=== PATIENT | male | born 1965 | race Caucasian/White ===

== ENCOUNTER 2020-11-06 10:02 | Outpatient (CLI) | payer OTHER, SELFPAY ==
--- NOTE | 2020-11-06 10:10 | XR_ITS ---
WS: [id number] Exam: XR cervical spine 3V* [id number] Date/Time of Exam: 11/06/2020 10:12 AM Reason For Exam: BACK NECK PAIN Exam: XR cervical spine 3V* [id number] Date/Time of Exam: 11/06/2020 10:12 AM Reason For Exam: BACK NECK PAIN No fracture or dislocation. The odontoid is intact. Paraspinal soft tissues appear normal. C7 is not optimally seen in the lateral view. Mild facet DJD. Spondylosis at C5 and C6. XR/XR cervical spine 3V* [id number] IMPRESSION: 1. No fracture or malalignment. 2. Mild facet DJD.
--- NOTE | 2020-11-06 10:10 | XR_ITS ---
WS: [id number] Exam: XR lumbar spine 2-3V* [id number] Date/Time of Exam: 11/06/2020 10:12 AM Reason For Exam: BACK NECK PAIN No acute fracture or dislocation. Disc spaces are relatively well maintained. Facet DJD at L4-5 and L 5-S1. Mild spondylosis. XR/XR lumbar spine 2-3V* [id number] IMPRESSION: 1. Mild DJD. No fracture or malalignment.
== END 2020-11-06 10:03 | disposition home or self-care (01) ==
LOC: RAD 10:08
PROVIDERS: PCP Family Medicine; Visit Provider Dermatology
DX: Z02.71 Encounter for disability determination (principal); M54.2 Cervicalgia; M54.5 Low back pain; M47.816 Spondylosis without myelopathy or radiculopathy, lumbar region; M47.812 Spondylosis without myelopathy or radiculopathy, cervical region
CPT/HCPCS: 72040; 72100

== ENCOUNTER 2021-01-13 13:58 | Emergency (ER) | payer OTHER, SELFPAY ==
[2021-01-13 14:09] VITALS: BP 116/82; PULSE 80; RESP 16; TEMP 36.6; O2SAT 98
--- NOTE | 2021-01-13 14:20 | XR_ITS ---
WS: [id number] Exam: XR chest 1V portable [id number] Date/Time of Exam: 01/13/2021 2:38 PM Reason For Exam: SOB No priors. The lungs are clear and fully expanded. Unremarkable cardiomediastinal silhouette. No pleural effusio ns. Bony structures are intact. Surgical clips seen along the superior mediastinum on the right. XR/XR chest 1V portable [id number] IMPRESSION: 1. No acute cardiopulmonary finding.
[2021-01-13 16:06] LABS: Basophils % 0.1 %; Eosinophils % 0.1 %; Hematocrit 45.3 % (42.0-52.0); Hemoglobin 15.3 g/dL (11.7-16.6); Lymphocytes # 1.4 10^3/uL (0.8-4.8); Lymphocytes % 16.9 %; Mean Corpuscular HGB Conc 33.8 g/dL (30.0-36.0); Mean Corpuscular Hemoglobin 29.8 pg (28.0-34.0); Mean Corpuscular Volume 88.1 fl (80-94); Mean Platelet Volume 9.6 fL (7.4-10.4); Monocytes # 0.9 10^3/uL (0.2-0.9); Monocytes % 10.6 %; Neutrophils % 71.9 %; Nucleated Red Blood Cells % 0 %; Platelet Count 297 10^3/cmm (130-400); Red Blood Count 5.14 10^6/uL (4.1-5.3); White Blood Count 8.2 10^3/uL (4.0-10.0)
[2021-01-13 16:28] LABS: Alanine Aminotransferase 25 U/L (0-41); Albumin Level 4.1 g/dL (3.5-5.2); Alkaline Phosphatase 84 IU/L (40-130); Anion Gap 19.2 (5-19); Aspartate Amino Transferase 17 U/L (0-40); Blood Urea Nitrogen 9 mg/dL (6-20); Calcium 8.4 mg/dL (8.5-10.5); Carbon Dioxide 21 mmol/L (22-29); Chloride 103 mmol/L (98-107); Globulin 2.9 g/dL (1.3-4.6); Glomerular Filtration Rate 171.4 mL/min (90-130); Glucose 107 mg/dL (65-115); Osmolality Calculated 287 mOsm/kg (285-295); Potassium 4.2 mmol/L (3.5-5.1); Sodium 139 mmol/L (136-145); Total Bilirubin 0.5 mg/dL (0.15-1.2)
[2021-01-13 17:37] VITALS: BP 119/81; PULSE 85; RESP 18; O2SAT 99
--- NOTE | 2021-01-13 17:39 | ED_ITS ---
HPI - SOB/Dyspnea General: Chief Complaint: Shortness of Breath/Dyspnea Stated Complaint: SOB Time Seen by Provider: 01/13/21 17:39 History of Present Illness: HPI Narrative: 55-year-old male patient comes in today with a 10-day history of nasal congestion and difficulty breathing through his nose. Patient appears unwell but not toxic. Patient also has had some increased difficulty with his depression due to 1 year loss of his father and his son. Patient denies any suicidal or homicidal intent. Patient is tearful at times when discussing these losses. Patient besides mental health history does not have any other chronic medical problems that he reports. Review of medication history notes metoprolol and pregabalin are also on patient's list besides diazepam and citalopram. Review of Systems 2 General: Reports: 10 or more systems reviewed and unremarkable except in HPI and below ENMT: Reports: nasal congestion PFS ED PFSH: Medical History Generalized anxiety disorder Social History (Updated 05/21/20 @ 11:36 by Lucy Cesar LPN) Smoking and tobacco status: former smoker Alcohol intake: current Physical Exam Const: COMMON NORMALS: no acute distress and patient oriented x3 GENERAL APPEARANCE: cooperative HENMT: COMMON NORMALS: normocephalic, TM's normal bilaterally and Normal external nose present HEAD & SCALP: normal to inspection and normocephalic NOSE: Normal external nose present, Abnormal mucous membranes and turbinates present erythematous and Nasal discharge present purulent TYMPANIC MEMBRANE: TM's normal bilaterally MOUTH: Normal oral and palatal mucosa present THROAT: postnasal drainage Eye: GENERAL EYE: appearance normal, both eyes and all related structures Neck/C-Spine: COMMON NORMALS: full ROM Lymph: LYMPHATIC: no lymphadenopathy noted Chest: COMMONS NORMALS: normal inspection of the chest Resp: COMMON NORMALS: normal respiratory effort and clear to auscultation bilaterally EFFORT & INSPECTION: Yes able to speak in complete sentences AUSCULTATION: clear to auscultation bilaterally Cardio: COMMON NORMALS: regular rate and regular rhythm RATE: regular rate RHYTHM: regular rhythm GI: COMMON NORMALS: non-tender : COMMON NORMALS: Yes no CVA tenderness BLADDER/KIDNEY EXAM: Yes no CVA tenderness Back/Pelvis: COMMON NORMALS: no CVA tenderness and thoracic and lumbar spine normal to inspection Extremity: COMMON NORMALS: normal to inspection Neuro: COMMON NORMALS: patient oriented x3 and moves all extremities Psych: COMMON NORMALS: mental status grossly normal and cooperative Skin: COMMON NORMALS: no rashes or lesions noted GENERAL SKIN EXAM: no rashes or lesions noted Course Vital Signs: Vital signs: Vital Signs Temperature 97.8 F 01/13/21 14:09 Pulse Rate 85 01/13/21 17:37 Respiratory Rate 18 01/13/21 17:37 Blood Pressure 119/81 01/13/21 17:37 Pulse Oximetry 99 01/13/21 17:37 MDM - SOB/Dyspnea MDM Narrative: Medical decision making narrative: 55-year-old male patient comes in today with complaints of difficulty breathing through his nose. On exam patient appears mildly unwell but not toxic. Patient is tearful at times which his states that he lost his father and his son about 1 year ago so this time year is hard for him with increased depression. Patient's been ill for about 10 days with sinus pain and pressure. On exam patient has red swollen turbinates with purulent nasal drainage and posterior pharyngeal nasal drainage. Lungs are clear to auscultation. Skin is warm and dry. Differential diagnosis includes but not limited to rhinosinusitis, COVID-19, pneumonia. Chest x-ray was normal. CBC and CMP were unremarkable. Patient had 2 Covid tests at home that were negative. We went ahead and did 1 here in the ER and it continued to be negative. Patient will be treated for rhinosinusitis. Patient was given 10 mg dexamethasone IM and Augmentin. Patient was also given some Afrin spray and some Flonase. Patient will continue treatment and follow-up with primary care for further evaluation and care Lab Data: Labs: Lab Results 3 01/13/21 01/13/21 15:55 15:55 WBC 8.2 10^3/uL 10^3/ uL (4.0-10.0) RBC 5.14 10^6/uL 10^6 /uL (4.1-5.3) Hgb 15.3 g/dL g/dL (11.7-16.6) Hct 45.3 % % (42.0-52.0) MCV 88.1 fl fl (80-94) MCH 29.8 pg pg (28.0-34.0) MCHC 33.8 g/dL g/dL (30.0-36.0) RDW 12.0 % L % (12.1-15.1) Plt Count 297 10^3/cmm 10^3 /cmm (130-400) MPV 9.6 fL fL (7.4-10.4) Neut % (Auto) 71.9 % % Lymph % (Auto) 16.9 % % Charles % (Auto) 10.6 % % Eos % (Auto) 0.1 % % Baso % (Auto) 0.1 % % Neut # (Auto) 5.90 10^3/uL 10^3 /uL (1.8-7.7) Lymph # (Auto) 1.4 10^3/uL 10^3/ uL (0.8-4.8) Charles # (Auto) 0.9 10^3/uL 10^3/ uL (0.2-0.9) Eos # (Auto) 0.0 10^3/uL 10^3/ uL (0.0-0.8) Baso # (Auto) 0.0 10^3/uL 10^3/ uL (0.0-0.1) Nucleated RBC % (a uto) 0 % % Nucleated RBCs # 0.0 /100WBC /100W BC Sodium 139 mmol/L mmol/L (136-145) Potassium 4.2 mmol/L mmol/L (3.5-5.1) Chloride 103 mmol/L mmol/L (98-107) Carbon Dioxide 21 mmol/L L mmol/ L (22-29) Anion Gap 19.2 H (5-19) BUN 9 mg/dL mg/dL (6-20) Creatinine 0.5 mg/dL L mg/dL (0.7-1.2) GFR Calculation 171.4 mL/min H mL /min (90-130) Glucose 107 mg/dL mg/dL (65-115) Calculated Osmolal ity 287 mOsm/kg mOsm/ kg (285-295) Calcium 8.4 mg/dL L mg/dL (8.5-10.5) Total Bilirubin 0.5 mg/dL mg/dL (0.15-1.2) AST 17 U/L U/L (0-40) ALT 25 U/L U/L (0-41) Alkaline Phosphata se 84 IU/L IU/L (40-130) Total Protein 7.0 g/dL g/dL (6.6-8.7) Albumin 4.1 g/dL g/dL (3.5-5.2) Globulin 2.9 g/dL g/dL (1.3-4.6) Discharge Plan Discharge Patient Disposition: Home Clinical Impression: Acute rhinosinusitis Condition: Stable Prescriptions: New Augmentin 875-125 mg tablet 1 tab PO BID Qty: 14 RF: 0 Flonase Allergy Relief 50 mcg/actuation spray,suspension 1 spray intranasal BID 14 Days Qty: 16 RF: 0 Afrin (oxymetazoline) 0.05 % spray,non-aerosol 2 spray intranasal BID 3 Days RF: 0 No Action metoprolol tartrate 100 mg tablet 100 mg PO DAILY 90 Days Qty: 90 RF: 3 pregabalin [Lyrica] 200 mg capsule 200 mg PO BID Qty: 60 RF: 3 citalopram 40 mg tablet 40 mg PO DAILY 90 Days Qty: 90 RF: 3 diazepam 10 mg tablet 10 mg PO TID PRN (Reason: anxiety) 30 Days Qty: 90 RF: 3 Discharge Orders: Discharge ED (Routine); Ordered 01/13/21 Ordered By: Shantanu Chery Referrals: Duane Sanchez MD [Primary Care Provider] - Discharge Diet: Usual diet Discharge Activity: Increase activity as tolerated Patient Instructions: Rhinosinusitis (ED), Opioid Safety Activity Restrictions/Additional Instructions: Home and rest. Drink plenty of water. Take antibiotics twice a day for 7 days. Use Afrin nasal spray 2 sprays each nostril twice daily to help with nasal congestion. Use fluticasone nasal spray 1 spray each nostril twice a day to help with sinus pressure and airway expansion. Wait at least 1 hour between nasal sprays. Follow-up with primary care in 2 days for recheck. Return to the ER for worsening symptoms or new concerns. Coding Level of Care Code ED Field Recruiter for Nena Barraza
[2021-01-13 18:00] VITALS: BP 142/94; PULSE 87; RESP 18; O2SAT 98
[2021-01-13 18:01] LABS: SARS Covid-2 Antigen Negative (Negative)
[2021-01-13] MEDS: amoxicillin-clav 875-125 mg Tablet 1 TAB PO (18:07)
[2021-01-13] MEDS: oxymetazoline 0.05% Nasal Spray 15 mL 2 SPRAY NOSTRIL-B (18:08)
[2021-01-13] MEDS: dexamethasone 10 mg/mL INJ IM (18:10)
--- NOTE | 2021-01-13 19:15 | PC.NURSE ---
Pt discharge home at 1825. not 1914
== END 2021-01-13 19:15 | disposition home or self-care (01) ==
PROVIDERS: Physician Assistant; Emergency Provider Nurse Practitioner Family; PCP Family Medicine
DX: J01.90 Acute sinusitis, unspecified (principal); Z87.891 Personal history of nicotine dependence; Z20.822 Contact with and (suspected) exposure to COVID-19
CPT/HCPCS: 71045; 80053; 85025; 87426; 96372; 99283; J1100

== ENCOUNTER → 2021-05-13 09:19 | Outpatient (BNVA) | payer MEDICAID, SELFPAY | PROVIDERS: PCP Family Medicine; Referring Provider Family Medicine; Visit Provider Orthopaedic Surgery | DX: M47.12 Other spondylosis with myelopathy, cervical region (principal); D18.00 Hemangioma unspecified site | CPT/HCPCS: 72050; 99203; 99204 ==

== ENCOUNTER 2021-05-26 09:58 | Outpatient (CLI) | payer MEDICAID, SELFPAY ==
--- NOTE | 2021-05-26 10:12 | CT_ITS ---
WS: [id number] LDCT LUNG CANCER SCREENING HISTORY: NICOTINE DEPENDENCE, CIGARETTES TECHNIQUE: Axial imaging performed from the apices to 1 cm below the costophrenic angles. Coronal and sagittal reformats are submitted with axial MIP series. All CT scans at [facility] use at least one of these dose optimization techniques: automated exposure control; mA and/or kV adjustment per patient size (includes targeted exams where dose is matched to clinical indication); or iterativ e reconstruction. DLP: 81.18 mGy.cm DIvol: Mean CTDIvol: 1.60 (mGy) COMPARISON: None available. Diagnostic quality: Satisfactory Lung Nodules: Bilateral nodules are noted along the fissures. The largest on the LEFT measures 5 mm. These are typically benign lymph nodes. Lungs: Mild paraseptal emphysema. No mass or additional nodule. No bronchiectasis. No endobronchial l esions. Heart: Normal size heart. No effusion. Other findings: Mild atherosclerosis aorta. Normal size pulmonary artery. No adenopathy. Absent RIGHT thyroid. May been removed surgically. No adrenal mass. Significant artifact through the upper abdomi nal structures by patient's arms. Thoracic spondylitic changes are mild. CT/CT lung screening [id number] IMPRESSION: LUNG-RADS: 2-Benign Appearance or Behavior FOLLOW UP: 12 Month: Continue annual screening with LDCT OTHER FINDINGS (S MODIFIER): None.
--- NOTE | 2021-05-26 10:14 | CT_ITS ---
WS: [id number] CT HEAD NONCONTRAST HISTORY: PERSONAL HX OF FALL/BRADYKINESIA/TREMOR/SPEECH DISORDER TECHNIQUE: Contiguous axial imaging performed through the brain in 2.5 mm imaging. Bone and soft tiss ue windows. Sagittal and coronal reformats reviewed. All CT scans at [facility] use at least one of these dose optimization techniques: automated exposure control; mA and/or kV adjustment per pa tient size (includes targeted exams where dose is matched to clinical indication); or iterative recon struction. DLP: 1042.18 mGy.cm COMPARISON: None available. No acute intracranial hemorrhage, midline shift or mass effect. Mild atrophy and mild chronic microvascular ischemic disease. The extent of atrophy is more than expe cted for a patient of this age. No prior infarct. There is also mild cerebellar atrophy. No inferior displacement of cerebellar tonsils. Ventricles: Normal size with no hydrocephalus. Paranasal sinuses: As visualized are clear. Mastoid air cells: Well pneumatized. Calvarium and scalp: Skull is intact with no soft tissue edema or swelling. CT/CT head wo con* [id number] IMPRESSION: 1. No acute intracranial hemorrhage or edema. 2. Mild cerebellar and cerebral atrophy. More than expected for the patient's age. No prior infarct.
== END 2021-05-26 09:59 | disposition home or self-care (01) ==
LOC: RAD 10:00
PROVIDERS: PCP Family Medicine; Visit Provider Family Medicine
DX: R47.9 Unspecified speech disturbances (principal); R25.8 Other abnormal involuntary movements; R25.1 Tremor, unspecified; F17.210 Nicotine dependence, cigarettes, uncomplicated; G31.9 Degenerative disease of nervous system, unspecified; Z13.83 Encounter for screening for respiratory disorder NEC; Z91.81 History of falling
CPT/HCPCS: 70450; 71271

== ENCOUNTER 2021-06-12 08:20 | Outpatient (CLI) | payer MEDICAID, SELFPAY ==
--- NOTE | 2021-06-12 08:45 | MR_ITS ---
WS: [id number] MRI CERVICAL SPINE NONCONTRAST TECHNIQUE: Sagittal T1, T2 and STIR imaging. Axial T2, gradient, and fiesta imaging. CLINICAL INFORMATION: pain/poor balance COMPARISON: MRI 1 [id number] FINDINGS: Straightening of the normal cervical lordosis. Mild cervical curve. Hemangiomas C3 and C7 vertebral b odies. Mild compression of the superior endplate at C7 appears new compared to 2019. Small amount of edema in this location. Correlation for recent trauma. C2-C3: Normal. C3-C4: Mild disc bulging with osteophytic ridging. Mild LEFT and no significant RIGHT foraminal narro wing. Mild facet arthropathy. Spinal canal is patent. C4-C5: Mild disc osteophyte complex with endplate ridging. Mild central canal stenosis. Slight contac t of the cervical cord. Mild RIGHT greater than LEFT foraminal narrowing. C5-C6: Disc osteophyte complex endplate ridging eccentric to the LEFT with slight indentation LEFT ve ntral cervical cord slightly progressed. Mild central canal stenosis. Severe LEFT and moderate RIGHT bony foraminal narrowing. Mild facet arthropathy. C6-C7: Disc osteophyte complex with endplate ridging. Mild central canal stenosis. Moderate LEFT and mild to moderate RIGHT bony foraminal narrowing. C7-T1: Minimal disc bulging. Spinal canal and foramen are patent. Visualized brain stem structures: Normal. Prevertebral soft tissues: Normal. MR/MR cervical spin wo con* [id number] IMPRESSION: 1. Straightening of the normal cervical lordosis with mild cervical curve. 2. Hemangiomas C3 and C7 vertebral bodies. Slight compression of the anterior superior endplate C7 appears new from previous. Trace edema in this location. 3. Mild central canal stenosis C4-C5 C5-C6 and C6-C7. Slight indentation on th e cervical cord at C5-C6 due to disc osteophyte complex slightly progressed com pared to previous. 4. Severe LEFT C5-C6 bony foraminal narrowing appears stable. Moderate LEFT C6 -C7 bony foraminal narrowing appears stable.
== END 2021-06-12 08:21 | disposition home or self-care (01) ==
LOC: RAD 08:22
PROVIDERS: PCP Family Medicine; Visit Provider Orthopaedic Surgery
DX: M54.2 Cervicalgia (principal)
CPT/HCPCS: 72141

== ENCOUNTER → 2021-07-03 08:28 | Outpatient (BNVA) | payer MEDICAID, SELFPAY | PROVIDERS: PCP Family Medicine; Visit Provider Orthopaedic Surgery | DX: M47.12 Other spondylosis with myelopathy, cervical region (principal) | CPT/HCPCS: 99214 ==

== ENCOUNTER 2021-07-30 05:44 | Day surgery (SDC) | payer MEDICAID, SELFPAY ==
[2021-07-28 08:50] VITALS: BMI 32.1
[2021-07-28 09:31] LABS: Basophils # 0.1 10^3/uL (0.0-0.1); Basophils % 0.7 %; Eosinophils # 0.1 10^3/uL (0.0-0.8); Eosinophils % 0.6 %; Hematocrit 44.4 % (42.0-52.0); Hemoglobin 14.9 g/dL (11.7-16.6); Lymphocytes % 37.8 %; Mean Corpuscular HGB Conc 33.6 g/dL (30.0-36.0); Mean Corpuscular Hemoglobin 29.9 pg (28.0-34.0); Mean Corpuscular Volume 89.2 fl (80-94); Mean Platelet Volume 9.4 fL (7.4-10.4); Monocytes # 1.2 10^3/uL (0.2-0.9); Monocytes % 11.4 %; Neutrophils # 5.22 10^3/uL (1.8-7.7); Neutrophils % 49.2 %; Nucleated Red Blood Cells % 0 %; Platelet Count 336 10^3/cmm (130-400); Red Blood Count 4.98 10^6/uL (4.1-5.3); Red Cell Distribution Width 12.2 % (12.1-15.1); White Blood Count 10.6 10^3/uL (4.0-10.0)
--- NOTE | 2021-07-28 09:37 | ECG_ITS ---
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 Measurements Intervals [place] Rate: 61 P: 57 MT: 169 QRS: 71 QRSD: 93 T: 74 QT: 410 QTc: 414 Interpretive Statements SINUS RHYTHM EARLY REPOLARIZATION [ST ELEVATION WITH NORMALLY INFLECTED T-WAVE] MINIMAL ST DEPRESSION [0.025+ mV ST DEPRESSION] No previous ECG available for comparison Electronically Signed On 07-28-2021 21:30:35 CDT by Beulah Rich M.D. [id number]
[2021-07-28 09:49] LABS: Anion Gap 14.8 (5-19); Blood Urea Nitrogen 18 mg/dL (6-20); Calcium 8.9 mg/dL (8.5-10.5); Carbon Dioxide 24 mmol/L (22-29); Chloride 102 mmol/L (98-107); Glomerular Filtration Rate 116.2 mL/min (90-130); Glucose 106 mg/dL (65-115); Osmolality Calculated 286 mOsm/kg (285-295); Potassium 3.8 mmol/L (3.5-5.1); Sodium 137 mmol/L (136-145)
--- NOTE | 2021-07-28 20:11 | P.ANESASSM_ITS ---
Pre-Anesthetic Assessment Height/Weight: Height 1.8 m Weight 104.326 kg Preop Diagnosis: cervical spondylosis w/ myelopathy Operation Date: 07/30/21 07:00 Proposed Procedures p Anterior Cervical Discectomy & Fusion C5/6 6/7 [id number]/ M47.12(Not Applicable) - Willem Grossman, DO Familial anesthetic complications: none Was Beta Shoshana taken within 24 hours: Yes Was Clonidine taken within 24 hours: N/A Social No alcohol and No tobacco Exam alert, oriented x 3, clear to auscultation bilaterally and regular rate & rhythm Airway Submandibular: within normal limits Cervical ROM: Other (Very limited ROM in extension and flexion ) Mallampati: Class III Dentition: partials (1 tooth is removable ) Pulmonary None reported CV/HEM Hypertension METS < 4 Denies CAD, [place] hx None reported Hepatic None reported GI None reported Metabolic Thyroid Disease Musc/skel Lower Back Pain and Osteoarthritis/DJD Neuropsych Anxiety Parkinson's disease suspected by PCP on carbidopa-levodopa Anesthetic Plan ASA status: 3 Anesthesia: Anesthesia Evaluation and General Other: We discussed risk and benefits of general anesthesia including PONV, sore throat (sometimes severe), corneal abrasion, positioning and peripheral nerve injuries, life threatening allergic reaction, post operative ICU admission requiring prolonged intubation, aspiration, stroke, heart attack, , and rare incidences of recall. Patient consents to proceed with general anesthesia. Discussed 2 PIV, possible arterial line. Risk of > 500 ml blood loss (7ml/kg in children): Yes, adequate IV access and fluids planned Medications/Allergies Home Medications Medication Instructions Recorded Confirmed Last Taken Type citalopram 40 mg tablet 40 mg PO DAILY 90 Days #90 tab 12/30/20 07/28/21 Unknown Rx oxycodone-acetaminophen 10 mg-325 1 tab PO TID PRN 90 Days #90 tab 04/01/21 07/28/21 Unknown Rx mg tablet pregabalin 200 mg capsule (Lyrica) 200 mg PO BID #60 cap 04/01/21 07/28/21 Unknown Rx diazepam 10 mg tablet 10 mg PO TID PRN 30 Days #90 tab 04/21/21 07/28/21 Unknown Rx atorvastatin 10 mg tablet 10 mg PO DAILY 07/28/21 07/28/21 Unknown History carbidopa 25 mg-levodopa 100 mg 1 tab PO TID 07/28/21 07/28/21 Unknown History tablet metoprolol tartrate 100 mg tablet 100 mg PO DAILY 07/28/21 07/28/21 Unknown History naloxone 4 mg/actuation nasal 1 spray INTRANASAL PRN PRN 07/28/21 07/28/21 Unknown History spray (Narcan) Allergies Allergy/AdvReac Type Severity Reaction Status Date / Time No Known Allergies Allergy Verified 07/28/21 08:37 [facility] Anesthesia Medical History Generalized anxiety disorder Social History Smoking and tobacco status: current every day smoker (1/4 pack per day ) Alcohol intake: current Data Anesthesia : 07/28/21 08:59 07/28/21 08:59 Short CBC 07/28/21 Range/Units 08:59 WBC 10.6 H (4.0-10.0) 10^3/uL Hgb 14.9 (11.7-16.6) g/dL Hct 44.4 (42.0-52.0) % MCV 89.2 (80-94) fl Plt Count 336 (130-400) 10^3/cmm Neut % (Auto) 49.2 % Neut # (Auto) 5.22 (1.8-7.7) 10^3/uL BMP 07/28/21 08:59 Sodium 137 Potassium 3.8 Chloride 102 Carbon Dioxide 24 BUN 18 Creatinine 0.7 Glucose 106 Calcium 8.9 Cardiac Studies: No Data to Display
[2021-07-30] VITALS (17 sets, daily range): BP systolic 125–165; BP diastolic 74–106; PULSE 61–86; RESP 12–18; TEMP 36.6–36.7; O2SAT 96–100
--- NOTE | 2021-07-30 | SCC_ITS ---
Procedure done: 1. Anterior diskectomy C5/6 2. Anterior discectomy C6/7 3. Insertion of cage C5/6 4. Insertion of Cage C6/7 5. Instrumentation with anterior plate from C5-C7 6. Use of allograft 20.6 seconds of fluoroscopic guidance, for a cumulative dose of 2.46 mGy, was provided to Dr. Grossman by the radiology department. C-arm images of the cervical spine were saved for the patient's permanent record. EUGENIOD
--- NOTE | 2021-07-30 | XR_ITS ---
WS: [id number] INTRAOPERATIVE TECHNIQUE: 4 Spot fluoroscopic images for intraoperative purposes. FLUOROSCOPY TIME: 12.4 seconds CLINICAL INFORMATION: acdf c5/6 c6/7 COMPARISON: None. FINDINGS: ACDF C5-C7 with interbody fusion grafts. Endotracheal tube with tip above the disha. XR/XR cervical spine 3V* [id number] IMPRESSION: Images obtained for intraoperative purposes.
[2021-07-30] MEDS: sodium chloride 0.9% 1,000 ML 30 ML IV (06:21)
[2021-07-30] MEDS: midazolam 1 mg/mL INJ 2 mL 2 MG IVP (06:32)
--- NOTE | 2021-07-30 06:49 | W.PM.OPSUD ---
Surgery/Procedure H&P Update DATE OF PROCEDURE: July 30, 2021 DATE H&P PERFORMED: 07/03/21 H&P UPDATE INFORMATION: I have reviewed H&P completed within last 30 days, I have examined patient prior to procedure and No changes to prior documentation PREOP DIAGNOSIS: Cervical spondylosis with myelopathy PLANNED PROCEDURE: Operation Date: 07/30/21 07:00 Proposed Procedures p Anterior Cervical Discectomy & Fusion C5/6 6/7 [id number]/ M47.12(Not Applicable) - Willem Grossman DO
--- NOTE | 2021-07-30 06:50 | P.ANESUD_ITS ---
Pre-Anesthetic Update Pre-Anesthetic Assessment: Date of Surgery/Procedure: 07/30/21 Preop Alexandrea gnosis: Cervical spondylosis with myelopathy Proposed Procedure: Operation Date: 07/30/21 07:00 Proposed Procedures p Anterior Cervical Discectomy & Fusion C5/6 6/7 [id number]/ M47.12(Not Applicable) - Willem Grossman, DO Any changes to Pre-Anesthetic Assessment?: No Last Intake: Intake Last Liquid Date 07/29/21 Last Liquid Time 18:00 Last Solid Date 07/29/21 Last Solid Time 18:00 Labs Last 48hrs: Short CBC 07/28/21 Range/Units 08:59 WBC 10.6 H (4.0-10.0) 10^3/ uL Hgb 14.9 (11.7-16.6) g/dL Hct 44.4 (42.0-52.0) % MCV 89.2 (80-94) fl Plt Count 336 (130-400) 10^3/c mm Neut % (Auto) 49.2 % Neut # (Auto) 5.22 (1.8-7.7) 10^3/u L BMP 07/28/21 08:59 Sodium 137 Potassium 3.8 Chloride 102 Carbon Dioxide 24 BUN 18 Creatinine 0.7 Glucose 106 Calcium 8.9 Vitals: Temperature 97.8 F 07/30/21 06:05 Temperature Source Temporal Artery S can 07/30/21 06:05 Pulse Rate 68 07/30/21 06:05 Pulse Rhythm 07/30/21 06:05 Pulse Strength 3+ Normal 07/30/21 06:05 Respiratory Rate 18 07/30/21 06:05 Blood Pressure 128/87 07/30/21 06:05 Blood Pressure Karla n 100 07/30/21 06:05 Pulse Oximetry 96 07/30/21 06:05 Oxygen Delivery Me thod 07/30/21 06:05 Exam: Pre-Anes Outpt Exam: alert, oriented x 3, clear to auscultation bilaterally and regular rate & rhythm Cardiac Studies: No Data to Display
--- NOTE | 2021-07-30 09:20 | PM.PACU ---
PACU note Narrative: Patient in PACU, alert, responsive. Known bradykinensia, secretions suctioned. Sat up in bed. Patient asking what time it is. Surgical dressing dry and intact.
--- NOTE | 2021-07-30 09:25 | PM.OP ---
Operative Report Date of procedure: July 30, 2021 Pre-op diagnosis: Preop Diagnosis Cervical spondylosis with myelopathy Post-op diagnosis: same Procedure done: 1. Anterior diskectomy C5/6 2. Anterior discectomy C6/7 3. Insertion of cage C5/6 4. Insertion of Cage C6/7 5. Instrumentation with anterior plate from C5-C7 6. Use of allograft Surgeon: Willem Grossman Cooking Appliance Repair Technician: Mook Trinh Cooking Appliance Repair Technician: The surgical pathologist, Mook Trinh, YANCI was needed for his expertise under the microscope. He was important and necessary throughout the procedure to complete in a safe and timely manner. He assisted with patient positioning prepping and draping tissue retraction suctioning of the operative field protection of the dural sac and tissue closure Estimated blood loss (mL): 25 Procedure: 1. Anterior diskectomy C5/6 2. Anterior discectomy C6/7 3. Insertion of cage C5/6 4. Insertion of Cage C6/7 5. Instrumentation with anterior plate from C5-C7 6. Use of allograft The patient was taken to the operating room, where he underwent general endotracheal anesthesia without complications. He was then positioned supine on the operating table, and all areas of impingement were well padded. The arms were carefully padded and tucked at his sides. A roll was placed between the shoulder blades.. An x-ray was done to determine the appropriate level for the skin incision. The entire neck was then sterilely prepped and draped in the usual fashion. Neuromonitoring was attached prior to prepping. A transverse skin incision was made and carried down to the platysma muscle. This was then split in line with its fibers. Blunt dissection was carried down medial to the carotid sheath and lateral to the trachea and esophagus until the anterior cervical spine was visualized. A needle was placed into a disc and an x-ray was done to determine its location. The longus colli muscles were then elevated bilaterally with the electrocautery unit. Self-retaining retractors were placed deep to the longus colli muscle. Attention was brought to the C5/6 level that was confirmed on x-ray. A caspar pin was placed into the C5 vertebrae and the C6 vertebrae. The disk space was then distracted. The microscope was then brought in. A radical anterior discectomies were performed at C5/6. This included complete removal of the anterior annulus, nucleus, and posterior annulus. The posterior longitudinal ligament was removed as were the posterior osteophytes. Foraminotomies were then accomplished bilaterally. This was done using a high speed loc, kerrison rongeurs and curretes Once all of this was accomplished, the curved currette was used to check for any residual compression. The central canal was wide open as were the foramen. A high-speed bur was used to remove the cartilaginous endplates above and below the interspace. Bleeding cancellous bone was exposed. The disc space were measured and appropriate size cage were placed sterilely onto the field. Allograft graft was packed into the cages. The cage was then placed and there was good juxtaposition against the bleeding decorticated surfaces and good distraction of each interspace. Attention was brought to the next interspace. The [place] pins were removed. Bone wax was used to prevent any bleeding from occurring at the pin sites. Attention was brought to the C6/7 level that was confirmed on x-ray. A caspar pin was placed into the C6 vertebrae and the C7 vertebrae. The disk space was then distracted. The microscope was then brought in. A radical anterior discectomies were performed at C6/7. This included complete removal of the anterior annulus, nucleus, and posterior annulus. The posterior longitudinal ligament was removed as were the posterior osteophytes. Foraminotomies were then accomplished bilaterally. This was done using a high speed loc, kerrison rongeurs and curretes Once all of this was accomplished, the curved currette was used to check for any residual compression. The central canal was wide open as were the foramen. A high-speed bur was used to remove the cartilaginous endplates above and below the interspace. Bleeding cancellous bone was exposed. The disc space were measured and appropriate size cage were placed sterilely onto the field. Allograft graft was packed into the cages. The cage was then placed and there was good juxtaposition against the bleeding decorticated surfaces and good distraction of each interspace. Attention was brought to the next interspace. The [place] pins were removed. Bone wax was used to prevent any bleeding from occurring at the pin sites The appropriate size anterior cervical locking plate was chosen and bent into gentle lordosis. Two screws were then placed into each of the vertebral bodies at C5, C6, C7 There was excellent purchase. A final x-ray was done confirming good position of the hardware and Cages. The locking screws were then applied, also with excellent purchase. Following a final copious irrigation, there was good hemostasis and no dural leaks. The carotid pulse was strong. The wounds were then closed in layers using 2-0 Vicryl suture for the platysma muscle, 2-0 Vicryl suture for the subcutaneous tissue, and 4-0 monocryl suture in a subcuticular skin closure. Glue was placed followed by application of a sterile dressing. The drain was hooked to bulb suction. A soft collar was applied. The patient was then carefully returned to the supine position on his hospital bed where he was reversed and extubated and taken to the recovery room having tolerated the procedure well.
[2021-07-30] MEDS: fentaNYL 50 mcg/mL INJ 2mL IVP (09:38)
[2021-07-30] MEDS: oxyCODONE-APAP 10-325 mg Tablet 1 TAB PO (10:37)
--- NOTE | 2021-07-30 11:12 | SUR.PHASEII ---
patient discharged to home with present. patient awake, alert. patient was able to void at bedside with urinal. pt had room air sat at 96 consistently. patient stated his pain was comfortable for him. he had united keetoowah j collar in place. dressing to anterior neck dry and intact, no drainage noted. patient drank water and swallowed pain pill while in post op. patient transferred to wheelchair, able to stand.
--- NOTE | 2021-07-30 12:17 | ANE.PACU2 ---
Inpatient post-anesthesia follow up: Airway intact: Yes Vital signs: Temperature 98.0 F Pulse Rate 70 Respiratory Rate 16 Blood Pressure 141/106 Pulse Oximetry 96 Oxygen Delivery Me thod Room Air Oxygen Flow Rate 1 Fraction of Inspir ed Oxygen Hydration adequate: Yes Nausea and vomiting: No Pain level: 6 Mental status: Baseline
== END 2021-07-30 11:09 | disposition home or self-care (01) ==
PROVIDERS: Anesthesiology; PCP Family Medicine; Visit Provider Orthopaedic Surgery
PROC: 0RB30ZZ Excision of Cervical Vertebral Disc, Open Approach (ICD-10-PCS; CPT 22551; principal; 2021-07-30 07:00)
DX: M47.12 Other spondylosis with myelopathy, cervical region (principal); I10 Essential (primary) hypertension; G20 Parkinson's disease; F17.210 Nicotine dependence, cigarettes, uncomplicated; F41.1 Generalized anxiety disorder
CPT/HCPCS: 20931; 22551; 22552; 22845; 22853 ×2; 51702; 72040; 76000; 80048; 85025; 93005; 97760; C1713; C9359; J0330; J0690; J1100; J1170; J2250; J2370; J2405; J2704; J2710; J3010; J3490; J7030; L0174

== ENCOUNTER → 2021-08-12 08:59 | Outpatient (BNVA) | payer MEDICAID, SELFPAY | PROVIDERS: PCP Family Medicine; Visit Provider Physician Assistant | DX: Z47.89 Encounter for other orthopedic aftercare (principal); Z98.890 Other specified postprocedural states; Z98.1 Arthrodesis status | CPT/HCPCS: 72040; 99024 ==

== ENCOUNTER → 2021-09-02 14:15 | Outpatient (BNVA) | payer MEDICAID, SELFPAY | PROVIDERS: PCP Family Medicine; Referring Provider Family Medicine; Visit Provider Specialist | DX: G23.8 Other specified degenerative diseases of basal ganglia (principal); F48.2 Pseudobulbar affect; F41.1 Generalized anxiety disorder; R26.81 Unsteadiness on feet | CPT/HCPCS: 99205 ==

== ENCOUNTER → 2021-09-09 09:08 | Outpatient (BNVA) | payer MEDICAID, SELFPAY | PROVIDERS: PCP Family Medicine; Visit Provider Physician Assistant | DX: Z98.1 Arthrodesis status (principal); Z47.89 Encounter for other orthopedic aftercare | CPT/HCPCS: 72040; 99024; 99212 ==

== ENCOUNTER 2021-09-30 09:59 | Outpatient (CLI) | payer MEDICAID, SELFPAY ==
--- NOTE | 2021-09-30 10:15 | MR_ITS ---
WS: [id number] MRI BRAIN WITHOUT CONTRAST HISTORY: G20 - Parkinson's disease COMPARISON: None available. TECHNIQUE: Diffusion imaging, multiplanar T1, T2 and FLAIR imaging obtained. No evidence for acute infarct or hemorrhage. Koehler-white matter differentiation is normal. Mild atrophy. No prior infarct. Appropriate width of the pars compacta. The substantia nigra is not a s well seen as on a high resolution evaluation but does appear within appropriate width. Ventricles and extra-axial spaces are normal. No inferior displacement of cerebellar tonsils. The sella turcica and pituitary gland are unremarkabl e. Dural venous sinuses and tuscarora of [place] demonstrate no abnormality on this unenhanced studies. Paranasal sinuses: Clear. Mastoid air cells: Normal. Calvarium and scalp: Intact. MR/MR head wo con* [id number] IMPRESSION: 1. No acute infarct or hemorrhage. 2. Very mild atrophy. No significant small vessel ischemic disease or prior in farct. 3. Normal appearance of the substantia nigra.
== END 2021-09-30 10:00 | disposition home or self-care (01) ==
PROVIDERS: PCP Family Medicine; Visit Provider Specialist
DX: G20 Parkinson's disease (principal); G31.9 Degenerative disease of nervous system, unspecified
CPT/HCPCS: 70551

== ENCOUNTER → 2021-10-07 09:51 | Outpatient (BNVA) | payer MEDICAID, SELFPAY | PROVIDERS: PCP Family Medicine; Visit Provider Specialist | DX: G23.8 Other specified degenerative diseases of basal ganglia (principal); F48.2 Pseudobulbar affect; F41.1 Generalized anxiety disorder; R26.81 Unsteadiness on feet | CPT/HCPCS: 99215 ==

== ENCOUNTER → 2021-10-14 09:01 | Outpatient (BNVA) | payer MEDICAID, SELFPAY | PROVIDERS: PCP Family Medicine; Visit Provider Physician Assistant | DX: R41.82 Altered mental status, unspecified; Z47.89 Encounter for other orthopedic aftercare; Z98.1 Arthrodesis status | CPT/HCPCS: 72040; 95816; 99024; 99212 ==

== ENCOUNTER → 2021-11-13 11:53 | Outpatient (BNVA) | payer MEDICAID, SELFPAY | PROVIDERS: PCP Family Medicine; Visit Provider Specialist | DX: G23.8 Other specified degenerative diseases of basal ganglia (principal); F48.2 Pseudobulbar affect; F41.1 Generalized anxiety disorder; G24.3 Spasmodic torticollis | CPT/HCPCS: 99214 ==

== ENCOUNTER → 2022-01-13 08:35 | Outpatient (BNVA) | payer MEDICAID, SELFPAY | PROVIDERS: PCP Family Medicine; Visit Provider Physician Assistant | DX: M47.12 Other spondylosis with myelopathy, cervical region (principal); Z98.1 Arthrodesis status | CPT/HCPCS: 72040; 99213 ==

== ENCOUNTER → 2022-01-29 09:48 | Outpatient (BNVA) | payer MEDICAID, SELFPAY | PROVIDERS: PCP Family Medicine; Visit Provider Specialist | DX: G24.3 Spasmodic torticollis (principal); F48.2 Pseudobulbar affect; G23.8 Other specified degenerative diseases of basal ganglia; F41.1 Generalized anxiety disorder | CPT/HCPCS: 64616; 99213; J0585 ==

== ENCOUNTER → 2022-04-23 09:07 | Outpatient (BNVA) | payer MEDICAID, SELFPAY | PROVIDERS: PCP Family Medicine; Visit Provider Specialist | DX: G24.3 Spasmodic torticollis (principal); G23.8 Other specified degenerative diseases of basal ganglia | CPT/HCPCS: 64616; 99212; J0585 ==

== ENCOUNTER 2022-05-28 12:55 | Outpatient (CLI) | payer MEDICAID, SELFPAY ==
--- NOTE | 2022-05-28 13:10 | CT_ITS ---
WS: [id number] LDCT LUNG CANCER SCREENING HISTORY: HX OF TOBACCO USE TECHNIQUE: Axial imaging performed from the apices to 1 cm below the costophrenic angles. Coronal and sagittal reformats are submitted with axial MIP series. All CT scans at [facility] use at least one of these dose optimization techniques: automated exposure control; mA and/or kV adjustment per patient size (includes targeted exams where dose is matched to clinical indication); or iterativ e reconstruction. DLP: 83.57 mGy.cm DIvol: Mean CTDIvol: 1.70 (mGy) COMPARISON: 05/26/2021 Diagnostic quality: Mild motion artifact. Lungs: Chronic emphysema. Reidentified nodules along the fissures with the largest measuring approxim ately 5 mm. These are unchanged and typically benign. No new pulmonary nodule or mass. No pneumonia. Heart: Normal size heart with no pericardial effusion.. 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 Mild atherosclerosis aorta. No aneu rysm. Mild coronary artery calcification. Small hiatal hernia. CT/CT lung screening [id number] IMPRESSION: LUNG-RADS: 2-Benign Appearance or Behavior FOLLOW UP: 12 Month: Continue annual screening with LDCT OTHER FINDINGS (S MODIFIER): None.
== END 2022-05-28 12:56 | disposition home or self-care (01) ==
LOC: RAD 12:58
PROVIDERS: PCP Family Medicine; Visit Provider Family Medicine
DX: Z12.2 Encounter for screening for malignant neoplasm of respiratory organs (principal); Z87.891 Personal history of nicotine dependence
CPT/HCPCS: 71271

== ENCOUNTER → 2022-07-21 13:49 | Outpatient (BNVA) | payer MEDICAID, SELFPAY | PROVIDERS: PCP Family Medicine; Visit Provider Physician Assistant | DX: Z98.1 Arthrodesis status (principal) | CPT/HCPCS: 72040; 99213 ==

== ENCOUNTER → 2022-07-23 09:30 | Outpatient (BNVA) | payer MEDICAID, SELFPAY | PROVIDERS: PCP Family Medicine; Visit Provider Specialist | DX: G24.3 Spasmodic torticollis (principal); G23.8 Other specified degenerative diseases of basal ganglia; F48.2 Pseudobulbar affect; M47.12 Other spondylosis with myelopathy, cervical region | CPT/HCPCS: 64616; 99213; J0585 ==

== ENCOUNTER → 2023-01-14 09:55 | Outpatient (BNVA) | payer MEDICARE, SELFPAY | PROVIDERS: PCP Family Medicine; Visit Provider Specialist | DX: G24.3 Spasmodic torticollis (principal); F48.2 Pseudobulbar affect | CPT/HCPCS: 64616; 99213; J0585 ==

== ENCOUNTER → 2023-04-15 09:37 | Outpatient (BNVA) | payer MEDICARE, SELFPAY | PROVIDERS: PCP Family Medicine; Visit Provider Specialist | DX: G23.8 Other specified degenerative diseases of basal ganglia (principal); F48.2 Pseudobulbar affect; F41.1 Generalized anxiety disorder; G24.3 Spasmodic torticollis | CPT/HCPCS: 64616; 99213; J0585 ==

== ENCOUNTER → 2023-07-22 09:36 | Outpatient (BNVA) | payer MEDICARE, SELFPAY | PROVIDERS: PCP Family Medicine; Visit Provider Specialist | DX: G23.8 Other specified degenerative diseases of basal ganglia (principal); G24.3 Spasmodic torticollis; F48.2 Pseudobulbar affect; F41.1 Generalized anxiety disorder | CPT/HCPCS: 64616; 99213; J0585 ==

== ENCOUNTER → 2023-10-21 08:19 | Outpatient (BNVA) | payer MEDICARE, SELFPAY | PROVIDERS: PCP Family Medicine; Visit Provider Specialist | DX: G23.8 Other specified degenerative diseases of basal ganglia (principal); G24.3 Spasmodic torticollis; F48.2 Pseudobulbar affect; F41.1 Generalized anxiety disorder | CPT/HCPCS: 64642; 64644; 99213; J0585 ==

== ENCOUNTER 2024-01-28 09:55 | Emergency (ER) | payer MEDICARE, SELFPAY ==
[2024-01-28] VITALS (25 sets, daily range): BP systolic 100–142; BP diastolic 62–81; PULSE 41–55; RESP 11–12; TEMP 36.7; O2SAT 95–100; BMI 27.1
--- NOTE | 2024-01-28 10:17 | ECG_ITS ---
[facility] Test Date: 2024-01-28 Pat Name: Tamir Cintron Department: Room: Gender: Male Property Maintenance Supervisor: : 1965 Requested By: Ellitot Persaud Order Number: [id number] Ritchie MD: Cayla Keith M.D. Measurements Intervals [place] Rate: 47 P: 56 WI: 168 QRS: 70 QRSD: 97 T: 65 QT: 485 QTc: 430 Interpretive Statements SINUS BRADYCARDIA Compared to ECG 07/28/2021 09:48:34 Sinus rhythm no longer present Early repolarization no longer present ST (T wave) deviation no longer present Electronically Signed On 01-28-2024 19:43:56 RADIATION CONTROL SPECIALIST by Cayla Keith M.D. [id number]
[2024-01-28 10:29] LABS: Glucose Point of Care 91 mg/dL (70-110)
--- NOTE | 2024-01-28 10:49 | CT_ITS ---
WS: [id number] CT HEAD TECHNIQUE: Noncontrast CT of the head obtained from the skullbase to the vertex. CLINICAL INFORMATION: headache COMPARISON: 05/26/2021 DLP: 1143.[address] scans at [facility] use at least one of these dose optimization techniques: automated e xposure control; mA and/or kV adjustment per patient size (includes targeted exams where dose is matc hed to clinical indication); or iterative reconstruction. FINDINGS: No evidence of intracranial hemorrhage or mass effect. Ventricular system and basal cisterns are wheat nt. Mild small vessel changes with moderate cerebellar parenchymal volume loss. No extra-axial fluid collections. No evidence of mass or mass effect. Paranasal sinuses and mastoid air cells are well aerated. .Normal visualized soft tissues. CT/CT head wo con* [id number] IMPRESSION: 1. No evidence of intracranial hemorrhage or mass effect. 2. No acute intracranial findings. 3. Moderate cerebellar atrophy similar to previous
--- NOTE | 2024-01-28 10:49 | XRR_ITS ---
PROCEDURE INFORMATION: Exam: XR Chest Exam date and time: 01/28/2024 11:18 AM Age: 58 years old Clinical indication: Cough and dyspnea; Additional info: Dyspnea/cough TECHNIQUE: Imaging protocol: Radiologic exam of the chest. Views: 1 view. COMPARISON: CT lung screening [id number] 05/28/2022 1:34 PM FINDINGS: Lungs: No significant active pathology. Pleural spaces: No pleural effusion or pneumothorax. Heart/Mediastinum: Unremarkable. Bones/joints: No significant pathology. XR/XR chest 1V portable [id number] IMPRESSION: No acute pathology or significant interval change.
--- NOTE | 2024-01-28 11:13 | ED_ITS ---
HPI - Weakness 2 General: Chief complaint: Weakness Stated complaint: sent by deondre Time Seen by Provider: 01/28/24 10:49 History of Present Illness: 58-year-old male presents to the emergen cy room from neurology clinic. Dr. Melendrez is seen this morning he was complaining of a headache some drowsiness as sharp. His head. He is also significantly bradycardic. He is on metoprolol. He does have multisystem organ failure and cerebellar atrophy. Patient has noticed increased shortness of breath over the last several days. He still has a sharp pain he isolates it mostly to the right side of his head. He did fall yesterday denies striking his head no loss of conscious no vomiting denies abdominal pain or chest pain Associated symptoms: Denies chest pain, chills, dysuria or fever(s) Review of Systems 2 Const: Denies: fever(s) or chills Card: Denies: chest pain Resp: Denies: dyspnea GI: Denies: abdominal pain : Denies: dysuria, urinary frequency or urinary urgency Musc: Denies: neck pain or back pain Skin/Breast: Denies: rash PFSH ED 2 PFSH: Medical History (Updated 01/28/24 @ 14:52 by Elliott Barclay DO) Cervical disc disease Hypertension History of thyroid cyst Multiple system atrophy with cerebellar features Cervical spondylosis with myelopathy Generalized anxiety disorder Surgical History (Updated 01/28/24 @ 11:25 by Elliott Barclay DO) H/O thyroidectomy Status post cervical spinal fusion Social History Smoking and tobacco/nicotine status: former use of tobacco/nicotine Alcohol intake: current Substance/Drug Use: never Physical Exam 2 Const: GENERAL APPEARANCE: cooperative ORIENTATION/CONSCIOUSNESS: Yes awake, Yes oriented to person, Yes oriented to place and Yes oriented to time HENMT: COMMON NORMALS: normocephalic, atraumatic and hearing grossly normal bilaterally HEAD & SCALP: normocephalic and atraumatic Resp: COMMON NORMALS: normal respiratory effort, No retractions, No use of accessory muscles and clear to auscultation bilaterally AUSCULTATION: clear to auscultation bilaterally Cardio: COMMON NORMALS: regular rate, regular rhythm and No murmurs present (Cardio) RATE: regular rate RHYTHM: regular rhythm GI: COMMON NORMALS: Soft to palpation and No hepatosplenomegaly present A USCULTATION: Yes normoactive bowel sounds PALPATION: Yes Soft to palpation, No Tenderness to palpation present (GI), No Guarding due to palpation present (GI) and Yes No hepatosplenomegaly present Extremity: COMMON NORMALS: normal to inspection, capillary refill normal, no clubbing, cyanosis or edema, no calf tenderness and no pedal edema Neuro: SENSORIUM/ORIENTATION: Yes oriented to person, Yes oriented to place and Yes oriented to time Skin: COMMON NORMALS: no rashes or lesions noted GENERAL SKIN EXAM: no rashes or lesions noted Course 2 Vital Signs: Vital signs: Vital Signs Temperature 98.0 F 01/28/24 10:07 Pulse Rate 47 L 01/28/24 15:14 Respiratory Rate 12 01/28/24 14:45 Blood Pressure 131/77 01/28/24 15:14 Pulse Oximetry 97 01/28/24 15:14 Oxygen Delivery Me thod Room Air 01/28/24 12:30 MDM - Weakness Medical Decision Making No acute decompensated heart failure at this time troponins trending negative. CT of the head was also negative. Patient is bradycardic but his blood pressure is well-maintained. Suspect is secondary to his metoprolol. He is on tartrate 100 mg once a day. Will discharge him home set up an outpatient echocardiogram and a 72-hour Holter monitor follow-up with his primary care doctor return if he has any further problems. Patient states he is feeling quite a bit better than he did earlier today and is anxious to go home at this time. He is encouraged to return if he has any recurrence or worsening symptoms. Lab Data 01/28/24 11:11 01/28/24 11:11 Radiology Impressions Chest X-Ray 01/28/24 10:49 IMPRESSION: No acute pathology or significant interval change. Head CT 01/28/24 10:49 IMPRESSION: 1. No evidence of intracranial hemorrhage or mass effect. 2. No acute intracranial findings. 3. Moderate cerebellar atrophy similar to previous Laboratory Results WBC 6.80 10^3/uL (3.29-11.43) 01/28/24 11:11 RBC 3.94 10^6/uL (3.85-5.65) 01/28/24 11:11 Hgb 12.40 g/dL (11.27-16.99) 01/28/24 11:11 Hct 37.8 % (37-53) 01/28/24 11:11 MCV 95.9 fl (82-101) 01/28/24 11:11 MCH 31.5 pg (27-33) 01/28/24 11:11 MCHC 32.8 g/dL (30-55) 01/28/24 11:11 RDW 12.5 % (12.1-15.1) 01/28/24 11:11 Plt Count 180 10^3/cmm (157-399) 01/28/24 11:11 MPV 9.2 fL (7.4-10.4) 01/28/24 11:11 Neut % (Auto) 50.7 % 01/28/24 11:11 Lymph % (Auto) 35.0 % 01/28/24 11:11 [place] % (Auto) 11.5 % 01/28/24 11:11 Eos % (Auto) 2.1 % 01/28/24 11:11 Baso % (Auto) 0.4 % 01/28/24 11:11 Neut # (Auto) 3.45 10^3/uL (1.8-7.7) 01/28/24 11:11 Lymph # (Auto) 2.4 10^3/uL (0.8-4.8) 01/28/24 11:11 Cooper # (Auto) 0.8 10^3/uL (0.2-0.9) 01/28/24 11:11 Eos # (Auto) 0.1 10^3/uL (0.0-0.8) 01/28/24 11:11 Baso # (Auto) 0.0 10^3/uL (0.0-0.1) 01/28/24 11:11 Nucleated RBC % (auto) 0 % 01/28/24 11:11 Nucleated RBCs # 0.0 /100WBC 01/28/24 11:11 Sodium 140 mmol/L (136-145) 01/28/24 11:11 Potassium 4.3 mmol/L (3.5-5.1) 01/28/24 11:11 Chloride 103 mmol/L (98-107) 01/28/24 11:11 Carbon Dioxide 29 mmol/L (22-29) 01/28/24 11:11 Anion Gap 12.3 (5-19) 01/28/24 11:11 BUN 11 mg/dL (8-23) 01/28/24 11:11 Creatinine 0.7 mg/dL (0.7-1.2) 01/28/24 11:11 GFR Calculation 115.0 mL/min (90-130) 01/28/24 11:11 Glucose 84 mg/dL (65-115) 01/28/24 11:11 POC Glucose 91 mg/dL (70-110) 01/28/24 10:21 Calculated Osmolality 289 mOsm/kg (285-295) 01/28/24 11:11 Calcium 8.7 mg/dL (8.5-10.5) 01/28/24 11:11 Total Bilirubin 0.5 mg/dL (0.15-1.2) 01/28/24 11:11 AST 44 U/L (0-40) H 01/28/24 11:11 ALT 90 U/L (0-41) H 01/28/24 11:11 Alkaline Phosphatase 66 U/L (40-130) 01/28/24 11:11 Troponin T Baseline 12 ng/L (0-15) 01/28/24 11:11 Troponin T 120 Minute 10.60 ng/L (0-15) 01/28/24 13:56 Delta Troponin T -1.40 ABS# (0-10) L 01/28/24 13:56 NT-Pro-B Natriuret Pep 222 pg/mL (0-125) H 01/28/24 11:11 Total Protein 5.9 g/dL (6.6-8.7) L 01/28/24 11:11 Albumin 3.8 g/dL (3.5-5.2) 01/28/24 11:11 Globulin 2.1 g/dL (1.3-4.6) 01/28/24 11:11 TSH 2.03 uIU/mL (0.27-4.20) 01/28/24 11:11 Urine Color Yellow (Yellow) 01/28/24 12:51 Urine Appearance Clear (CLEAR) 01/28/24 12:51 Urine pH 5.5 (5-7) 01/28/24 12:51 Ur Specific [place] 1.005 (1.005-1.030) 01/28/24 12:51 Urine Protein Negative (Negative) 01/28/24 12:51 Urine Glucose (UA) Negative (Normal) 01/28/24 12:51 Urine Ketones Negative (Negative) 01/28/24 12:51 Urine Blood Negative (Negative) 01/28/24 12:51 Urine Nitrate Negative (Negative) 01/28/24 12:51 Urine Bilirubin Negative (Negative) 01/28/24 12:51 Urine Urobilinogen 0.2 mg/dL (Negative) 01/28/24 12:51 Ur Leukocyte Esterase Negative (Negative) 01/28/24 12:51 Urine RBC 0-2 /hpf (0-2) 01/28/24 12:51 Urine WBC 0-5 /hpf (0-5) 01/28/24 12:51 Ur Squamous Epith Cells 0-5 /hpf (0-5) 01/28/24 12:51 Amorphous Sediment Not Reportable 01/28/24 12:51 Urine Bacteria None seen /hpf (NONE) 01/28/24 12:51 Hyaline Casts 0-4 /lpf H 01/28/24 12:51 All radiology interpretation(s) finalized by discharge Discharge Plan Discharge Patient Disposition: Home Clinical Impression: Weakness, Bradycardia Condition: Stable Prescriptions: No Action Botox 100 unit recon soln 200 unit IM Q90D Qty: 2 0RF Rx Instructions: Left [id number], Left [id number], Left vgnhhdaa26a, Left nrxygopwn78e, Left [id number] citalopram 40 mg tablet 40 mg PO DAILY 90 Days Qty: 90 3RF buspirone 10 mg tablet 10 mg PO TID Qty: 90 5RF Rx Instructions: As needed for anxiety pregabalin [Lyrica] 200 mg capsule 200 mg PO BID Qty: 60 3RF Rx Instructions: patient is holding this medication until after surgery olanzapine 10 mg tablet See Rx Instructions .ROUTE .COMPLEX Rx Instructions: take 1 tablet by mouth in the morning, then 2 tabs by mouth in the afternoon atorvastatin 10 mg tablet 10 mg PO DAILY metoprolol tartrate 100 mg tablet 100 mg PO DAILY Rx Instructions: TAKE 1 TABLET BY MOUTH EVERY DAY Discharge Orders: Discharge ED (Routine); Ordered 01/28/24 Ordered By: Elliott Barclay Referrals: Rohith Urbano MD [Primary Care Provider] - Patient Instructions: Opioid Safety, Pain Management Activity Restrictions/Additional Instructions: Thank you for choosing [facility] for your healthcare needs today. It is very important that you follow up as instructed or that you return to the Emergency Department should you have concerns or if your condition changes or worsens in any way. You were seen in the emergency room with complaint of weakness. There is no sign of acute congestive heart failure. Your CT of your head was negative. You were noted to be mildly bradycardic this is likely related to the metoprolol that you are currently taking. Will discharge you home and set you up for an outpatient echocardiogram and 3-day Holter monitor (monitoring of your heart rhythm). Follow-up with your primary care doctor Coding Level of Care Code ED Gang Hemstitching Machine Operator for Chg Fwd Related Data Home Medications Medication Instructions Recorded Confirmed atorvastatin 10 mg tablet 10 mg PO DAILY 07/28/21 01/28/24 metoprolol tartrate 100 mg tablet 100 mg PO DAILY 07/28/21 01/28/24 olanzapine 10 mg tablet See Rx Instructions .Route .COMPLEX 01/28/24 01/28/24 Previous Rx's Medication Instructions Recorded pregabalin 200 mg capsule (Lyrica) 200 mg PO BID #60 caps 04/01/21 citalopram 40 mg tablet 40 mg PO DAILY 90 days #90 tabs 10/07/21 onabotulinumtoxinA 100 unit 200 unit IM Q90D #2 ea 07/14/23 solution for injection (Botox) buspirone 10 mg tablet 10 mg PO TID #90 tabs 01/28/24 Allergies Allergy/AdvReac Type Severity Reaction Status Date / Time No Known Allergies Allergy Verified 01/28/24 10:24
[2024-01-28 11:30] LABS: Basophils % 0.4 %; Eosinophils # 0.1 10^3/uL (0.0-0.8); Eosinophils % 2.1 %; Hematocrit 37.8 % (37-53); Lymphocytes # 2.4 10^3/uL (0.8-4.8); Mean Corpuscular HGB Conc 32.8 g/dL (30-55); Mean Corpuscular Hemoglobin 31.5 pg (27-33); Mean Corpuscular Volume 95.9 fl (82-101); Mean Platelet Volume 9.2 fL (7.4-10.4); Monocytes # 0.8 10^3/uL (0.2-0.9); Monocytes % 11.5 %; Neutrophils # 3.45 10^3/uL (1.8-7.7); Neutrophils % 50.7 %; Nucleated Red Blood Cells % 0 %; Platelet Count 180 10^3/cmm (157-399); Red Blood Count 3.94 10^6/uL (3.85-5.65); Red Cell Distribution Width 12.5 % (12.1-15.1)
[2024-01-28 11:44] LABS: Troponin(5th) Baseline 12 ng/L (0-15)
[2024-01-28 11:58] LABS: Alanine Aminotransferase 90 U/L (0-41); Albumin Level 3.8 g/dL (3.5-5.2); Alkaline Phosphatase 66 U/L (40-130); Anion Gap 12.3 (5-19); Aspartate Amino Transferase 44 U/L (0-40); Blood Urea Nitrogen 11 mg/dL (8-23); Calcium 8.7 mg/dL (8.5-10.5); Carbon Dioxide 29 mmol/L (22-29); Chloride 103 mmol/L (98-107); Creatinine Clr Calc Pharmacy 127.8737; Globulin 2.1 g/dL (1.3-4.6); Glucose 84 mg/dL (65-115); NT Pro B Type Natriuretic Pept 222 pg/mL (0-125); Osmolality Calculated 289 mOsm/kg (285-295); Potassium 4.3 mmol/L (3.5-5.1); Sodium 140 mmol/L (136-145); Thyroid Stimulating Hormone 2.03 uIU/mL (0.27-4.20); Total Bilirubin 0.5 mg/dL (0.15-1.2); Total Protein 5.9 g/dL (6.6-8.7)
--- NOTE | 2024-01-28 12:48 | ECG_ITS ---
[facility] Test Date: 2024-01-28 Pat Name: Tamir Cintron Department: Room: Gender: Male Contracts Paralegal: : 1965 Requested By: Elliott Persaud Order Number: [id number] Ritchie MD: Cayla Keith M.D. Measurements Intervals [place] Rate: 44 P: 56 CT: 169 QRS: 70 QRSD: 110 T: 57 QT: 516 QTc: 443 Interpretive Statements SINUS BRADYCARDIA PROLONGED QT INTERVAL Compared to ECG 01/28/2024 10:17:00 Prolonged QT interval now present Electronically Signed On 01-28-2024 19:53:03 PING PONG TABLE ASSEMBLER by Cayla Keith M.D. [id number]
[2024-01-28 13:14] LABS: Bilirubin Urine Negative (Negative); Blood Urine Negative (Negative); Glucose Urine UA Negative (Normal); Ketones Urine Negative (Negative); Leukocyte Esterase Urine Negative (Negative); Nitrate Urine Negative (Negative); Protein Urine Negative (Negative); Specific Gravity, Urine 1.005 (1.005-1.030); Urine Appearance Clear (CLEAR); Urine Color Yellow (Yellow); Urobilinogen Urine 0.2 mg/dL (Negative); pH Urine 5.5 (5-7)
[2024-01-28 13:16] LABS: Add Urine Microscopic? YES; Bacteria Urine None Seen /hpf; Hyaline Casts Urine 0-4 /lpf; RBC Urine 0-2 /hpf (0-2); Squamous Epithelial Cell Urine 0-5 /hpf (0-5); WBC Urine 0-5 /hpf (0-5)
--- NOTE | 2024-01-31 09:32 | DCPLANNER ---
faxed outpatient echo order to scheduling for er f/u
== END 2024-01-28 15:16 | disposition home or self-care (01) ==
PROVIDERS: Emergency Provider Family Medicine; PCP Family Medicine
DX: R53.1 Weakness (principal); R00.1 Bradycardia, unspecified; Z87.891 Personal history of nicotine dependence; I10 Essential (primary) hypertension
CPT/HCPCS: 36415; 36416; 70450; 71045; 80053; 81001; 82962; 83880; 84443; 84484; 85025; 93005; 99215; 99285

== ENCOUNTER 2024-02-23 07:46 | Outpatient (CLI) | payer MEDICARE, SELFPAY ==
--- NOTE | 2024-02-23 07:56 | USCV_ITS ---
Tamir Cintron Age: 58 Gender: M : 1965 Exam Date: 02/23/2024 08:04 Ordering Phys: Elliott Barclay DO Technologist: [place] [facility] [place]ication: chest pain BP: / HR: 53 Rhythm: Sinus Technical Quality: Adequate MEASUREMENTS (Male / Female) Normal Values 2D ECHO LV Diastolic Diameter PLAX 3.3 cm 4.2 - 5.9 / 3.9 - 5.3 cm IVS Diastolic Thickness 1.3 cm 0.6 - 1.0 / 0.6 - 0.9 cm IVS Systolic Thickness 1.6 cm LVPW Diastolic Thickness 1.5 cm 0.6 - 1.0 / 0.6 - 0.9 cm LVPW Systolic Thickness 1.6 cm LVOT Diameter 2.0 cm LV Ejection Fraction 2D Teich 66.8 % LV Ejection Fraction MOD 4C 63.1 % LV Ejection Fraction MOD 2C 51.2 % LV Ejection Fraction 2C AL 50.4 % LA Diameter 3.5 cm RA Systolic Volume 4C AL 35.4 ml RA Systolic Volume 4C MOD 34.6 ml Aorta at Sinotubular Diameter 2.9 cm DOPPLER AV Peak Velocity 109.0 cm/s LVOT Peak Velocity 86.0 cm/s AV Area Cont Eq vti 3.2 cm squared AV Area Cont Eq pk 2.6 cm squared MV Peak Velocity 103.0 cm/s MV Area PHT 6.7 cm squared Mitral E to A Ratio 1.5 TV Peak Velocity 179.0 cm/s TR Peak Velocity 195.0 cm/s TR Peak Gradient 15.2 mmHg TV Peak E Velocity 84.0 cm/s PV Peak Velocity 114.0 cm/s FINDINGS Left Ventricle Normal left ventricular size, systolic function and wall thickness, with no regional wall motion abnormalities. Left ventricular ejection fraction is estimated at 60 %. Grade I/IV diastolic dysfunction (abnormal relaxation filling pattern), normal to mildly elevated filling pressures. Right Ventricle The right ventricle is normal in size and function. Right Atrium The right atrium is normal in size. Left Atrium The left atrium is normal in size. Mitral Valve Mildly thickened mitral valve. No mitral valve stenosis. Trace mitral valve regurgitation. Aortic Valve Moderate aortic valve calcification. No aortic valve stenosis. No aortic valve regurgitation. Tricuspid Valve Structurally normal tricuspid valve without significant stenosis or regurgitation. Pulmonary artery systolic pressure is normal. Pulmonic Valve Structurally normal pulmonic valve without significant stenosis. There is no pulmonic regurgitation. Pericardium Normal pericardium without effusion. Aorta Normal ascending aorta dimension. IVC The inferior vena cava appears normal. CONCLUSIONS Normal left ventricular size, systolic function and wall thickness, with no regional wall motion abnormalities. Left ventricular ejection fraction is estimated at 60 %. Grade I/IV diastolic dysfunction (abnormal relaxation filling pattern), normal to mildly elevated filling pressures. No significant valve abnormalities. There is no pericardial effusion. Right atrial pressure is around 5 mm of mercury. Alexandra Martel MD (Electronically Signed) Final Date: 24 February 2024 21:26 S
== END 2024-02-23 07:47 | disposition home or self-care (01) ==
PROVIDERS: PCP Family Medicine; Visit Provider Family Medicine
DX: G40.109 Localization-related (focal) (partial) symptomatic epilepsy and epileptic syndromes with simple partial seizures, not intractable, without status epilepticus (principal); R53.1 Weakness; R93.1 Abnormal findings on diagnostic imaging of heart and coronary circulation; I05.9 Rheumatic mitral valve disease, unspecified; I70.0 Atherosclerosis of aorta
CPT/HCPCS: 93306

== ENCOUNTER → 2024-02-24 14:30 | Outpatient (BNVA) | payer MEDICARE, SELFPAY | PROVIDERS: PCP Family Medicine; Visit Provider Internal Medicine Cardiovascular Disease | DX: R00.1 Bradycardia, unspecified (principal); I49.1 Atrial premature depolarization; I49.3 Ventricular premature depolarization | CPT/HCPCS: 93242 ==

== ENCOUNTER → 2024-03-03 09:16 | Outpatient (BNVA) | payer MEDICARE, SELFPAY | PROVIDERS: PCP Family Medicine; Visit Provider Specialist | DX: G24.3 Spasmodic torticollis (principal); G23.8 Other specified degenerative diseases of basal ganglia; F48.2 Pseudobulbar affect; F41.1 Generalized anxiety disorder | CPT/HCPCS: 64616; 99214; J0585 ==

== ENCOUNTER 2024-03-28 14:11 | Emergency (ER) | payer MEDICARE, SELFPAY ==
[2024-03-28 14:22] VITALS: BP 133/94; PULSE 72; RESP 17; TEMP 36.8; O2SAT 97; BMI 25.1
--- NOTE | 2024-03-28 14:28 | CT_ITS ---
WS: [id number] CT HEAD NONCONTRAST HISTORY: ams TECHNIQUE: Contiguous axial imaging performed through the brain. Bone and soft tissue windows. Sagittal and coronal reformats reviewed. All CT scans at [facility] use at least one of these dose optimization techniques: automated exposure control; mA and/or kV adjustment per patient size (includes targeted exams where dose is matched to clinical indication); or iterative reconstruction. DLP: 1106.74 mGy.cm COMPARISON: 01/28/2024 No acute intracranial hemorrhage, midline shift or mass effect. Mild atrophy and mild small vessel disease. Moderate cerebellar atrophy. Very similar to the prior study. Ventricles: Normal size with no hydrocephalus. No inferior displacement of the cerebellar tonsils. Paranasal sinuses: As visualized are clear. Mastoid air cells: Well pneumatized. Calvarium and scalp: Skull is intact with no soft tissue edema or swelling. CT/CT head wo con* [id number] IMPRESSION: 1. No acute intracranial hemorrhage or edema. 2. Mild cerebral and moderate cerebellar atrophy, similar to the prior study. No acute interval change.
--- NOTE | 2024-03-28 14:28 | XR_ITS ---
WS: [id number] PORTABLE CHEST HISTORY: ams COMPARISON: 12 03/30/2023 Decreased lung volumes due to poor inspiratory effort. No consolidation or pneumonia. No pleural effusion or pneumothorax. Cardiac size: Normal. Mediastinum/Aorta: Mild atherosclerosis aorta. No osseous abnormality seen. XR/XR chest 1V portable [id number] IMPRESSION: 1. Poor inspiration. 2. No pneumonia or pulmonary congestion.
--- NOTE | 2024-03-28 14:31 | ED_ITS ---
HPI - Altered Mental Status 2 General: Chief Complaint: Altered Mental Status Stated Complaint: AMS, Time Seen by Provider: 03/28/24 14:25 Source: patient Mode of arrival: ambulatory Limitations: no limitations History of Present Illness: 58-year-old male is here with EMS he had had a period of altered mental status at home per EMS. Patient supposedly syncopized collapse and was altered for roughly 5 to 10 minutes he is now awake and alert he is at his baseline he is answering all my questions appropriately he knows where he is his name the year. He denies any pain anywhere denies any chest pain or headache. No signs of stroke Related Data Home Medications ?Medication ?Instructions ?Recorded ?Confirmed atorvastatin 10 mg tablet 10 mg PO DAILY 03/28/2403/11 pregabalin 200 mg capsule 200 mg PO DAILY 03/28/24 Previous Rx's ?Medication ?Instructions ?Recorded onabotulinumtoxinA 100 unit 200 unit IM Q90D #2 ea 07/01 solution for injection (Botox) buspirone 10 mg tablet 20 mg (2 x 10 mg) PO TID #18 0 tabs 03/03/24 citalopram 40 mg tablet 60 mg (1.5 x 40 mg) PO DAILY 90 03/03/24 days #180 tabs metoprolol tartrate 50 mg tablet 50 mg PO DAILY #90 ta bs 03/03/24 olanzapine 20 mg tablet (Zyprexa) 20 mg PO DAILY #90 t abs 03/03/24 Allergies Allergy/AdvReac Type Severity Reaction Status Date / Time No Known Allergies Allergy Verified 03/03/24 10:08 Review of Systems 2 Const: Denies: fever(s), chills, body aches or change in appetite ENMT: Denies: throat pain or dental pain Card: Reports: syncope; Denies: chest pain Resp: Denies: dyspnea GI: Denies: abdominal pain, nausea, vomiting or diarrhea Musc: Denies: neck pain or back pain Skin/Breast: Denies: rash Neuro: Denies: headache(s) PFSH ED 2 PFSH: Medical History Cervical disc disease Hypertension History of thyroid cyst Multiple system atrophy with cerebellar features Cervical spondylosis with myelopathy Generalized anxiety disorder Surgical History H/O thyroidectomy Status post cervical spinal fusion Social History Smoking and tobacco/nicotine status: former use of tobacco/nicotine Alcohol intake: current Substance/Drug Use: never Physical Exam 2 Const: COMMON NORMALS: no acute distress, patient oriented x3 and healthy appearing HENMT: COMMON NORMALS: normocephalic and atraumatic HEAD & SCALP: n ormocephalic and atraumatic Eye: COMMON NORMALS: conjunctivae normal CONJUNCTIVA: Yes conjunctivae normal Neck/C-Spine: COMMON NORMALS: full ROM and supple Chest: COMMONS NORMALS: normal inspection of the chest Resp: COMMON NORMALS: normal respiratory effort, No retractions, No use of accessory muscles and clear to auscultation bilaterally AUSCULTATION: clear to auscultation bilaterally Cardio: COMMON NORMALS: regular rate, regular rhythm and No murmurs present (Cardio) RATE: regular rate RHYTHM: regular rhythm GI: COMMON NORMALS: Normal to inspection, nondistended, normoactive bowel sounds present, Soft to palpation, non-tender and no masses PALPATION: Yes Soft to palpation Extremity: COMMON NORMALS: normal to inspection and full ROM Neuro: COMMON NORMALS: patient oriented x3, moves all extremities and no focal motor deficits Psych: COMMON NORMALS: mental status grossly normal, Normal thought process present and cooperative THOUGHT PROCESS: Normal thought process present Skin: COMMON NORMALS: no rashes or lesions noted and no wounds GENERAL SKIN EXAM: no rashes or lesions noted Course 2 Vital Signs: Vital signs: Vital Signs Temperature 98.3 F 03/28/24 14:22 Pulse Rate 70 03/28/24 16:00 Respiratory Rate 17 03/28/24 14:22 Blood Pressure 114/86 03/28/24 16:00 Pulse Oximetry 96 03/28/24 16:00 Oxygen Delivery Me thod Room Air 03/28/24 16:00 MDM - Altered Mental Status Medical Decision Making Patient presents here with. Confusion after speaking to family states that he was sleeping and they actually is having a hard time getting him to wake up he has been awake alert here answering all questions appropriate he is at his baseline he has no complaints he is stable for discharge follow-up with PCP return if worsening Medical Records I reviewed the patient's medical records. Lab Data I reviewed the patient's lab results. 03/28/24 13:59 03/28/24 13:59 Radiology Impressions Chest X-Ray 03/28/24 14:28 IMPRESSION: 1. Poor inspiration. 2. No pneumonia or pulmonary congestion. Head CT 03/28/24 14:28 IMPRESSION: 1. No acute intracranial hemorrhage or edema. 2. Mild cerebral and moderate cerebellar atrophy, similar to the prior study. No acute interval change. Laboratory Results WBC 8.79 10^3/uL (3.29-11.43) 03/28/24 13:59 RBC 4.77 10^6/uL (3.85-5.65) 03/28/24 13:59 Hgb 14.80 g/dL (11.27-16.99) 03/28/24 13:59 Hct 45.3 % (37-53) 03/28/24 13:59 MCV 95.0 fl (82-101) 03/28/24 13:59 MCH 31.0 pg (27-33) 03/28/24 13:59 MCHC 32.7 g/dL (30-55) 03/28/24 13:59 RDW 12.7 % (12.1-15.1) 03/28/24 13:59 Plt Count 401 10^3/cmm (157-399) H 03/28/24 13:59 MPV 9.3 fL (7.4-10.4) 03/28/24 13:59 Neut % (Auto) 67.4 % 03/28/24 13:59 Lymph % (Auto) 23.0 % 03/28/24 13:59 [place] % (Auto) 8.3 % 03/28/24 13:59 Eos % (Auto) 0.5 % 03/28/24 13:59 Baso % (Auto) 0.6 % 03/28/24 13:59 Neut # (Auto) 5.93 10^3/uL (1.8-7.7) 03/28/24 13:59 Lymph # (Auto) 2.0 10^3/uL (0.8-4.8) 03/28/24 13:59 [place] # (Auto) 0.7 10^3/uL (0.2-0.9) 03/28/24 13:59 Eos # (Auto) 0.0 10^3/uL (0.0-0.8) 03/28/24 13:59 Baso # (Auto) 0.1 10^3/uL (0.0-0.1) 03/28/24 13:59 Nucleated RBC % (auto) 0 % 03/28/24 13:59 Nucleated RBCs # 0.0 /100WBC 03/28/24 13:59 Sodium 145 mmol/L (136-145) 03/28/24 13:59 Potassium 3.8 mmol/L (3.5-5.1) 03/28/24 13:59 Chloride 103 mmol/L (98-107) 03/28/24 13:59 Carbon Dioxide 29 mmol/L (22-29) 03/28/24 13:59 Anion Gap 16.8 (5-19) 03/28/24 13:59 BUN 8 mg/dL (8-23) 03/28/24 13:59 Creatinine 0.6 mg/dL (0.7-1.2) L 03/28/24 13:59 GFR Calculation 137.4 mL/min (90-130) H 03/28/24 13:59 Glucose 96 mg/dL (65-115) 03/28/24 13:59 POC Glucose 96 mg/dL (70-110) 03/28/24 14:48 Calculated Osmolality 298 mOsm/kg (285-295) H 03/28/24 13:59 Calcium 9.9 mg/dL (8.5-10.5) 03/28/24 13:59 Total Bilirubin 0.4 mg/dL (0.15-1.2) 03/28/24 13:59 AST 14 U/L (0-40) 03/28/24 13:59 ALT 12 U/L (0-41) 03/28/24 13:59 Alkaline Phosphatase 81 U/L (40-130) 03/28/24 13:59 Ammonia 18 umol/L (16-60) 03/28/24 13:59 Total Protein 8.4 g/dL (6.6-8.7) 03/28/24 13:59 Albumin 4.4 g/dL (3.5-5.2) 03/28/24 13:59 Globulin 4.0 g/dL (1.3-4.6) 03/28/24 13:59 TSH 0.41 uIU/mL (0.27-4.20) 03/28/24 13:59 Urine Color Yellow (Yellow) 03/28/24 16:10 Urine Appearance Clear (CLEAR) 03/28/24 16:10 Urine pH 5.5 (5-7) 03/28/24 16:10 Ur Specific [place] 1.008 (1.005-1.030) 03/28/24 16:10 Urine Protein Negative (Negative) 03/28/24 16:10 Urine Glucose (UA) Negative (Normal) 03/28/24 16:10 Urine Ketones Negative (Negative) 03/28/24 16:10 Urine Blood Negative (Negative) 03/28/24 16:10 Urine Nitrate Negative (Negative) 03/28/24 16:10 Urine Bilirubin Negative (Negative) 03/28/24 16:10 Urine Urobilinogen 0.2 mg/dL (Negative) 03/28/24 16:10 Ur Leukocyte Esterase Negative (Negative) 03/28/24 16:10 Ethyl Alcohol < 10 mg/dL (0-10) 03/28/24 13:59 All radiology interpretation(s) finalized by discharge EKG Data EKG 1: I personally reviewed and interpreted this EKG as follows: EKG interpretation date: 03/28/24 EKG interpretation time: 14:47 Interpretation: nsr hr [address] elevation qrs 101qtc 439 Discharge Plan Discharge Patient Disposition: Home Clinical Impression: Altered mental status Condition: Stable Prescriptions: No Action Botox 100 unit recon soln 200 unit IM Q90D Qty: 2 0RF Rx Instructions: Left [id number], Left [id number], Left [id number], Left [id number], Left [id number] buspirone 10 mg tablet 20 mg PO TID Qty: 180 5RF Rx Instructions: As needed for anxiety citalopram 40 mg tablet 60 mg PO DAILY 90 Days Qty: 180 3RF olanzapine [Zyprexa] 20 mg tablet 20 mg PO DAILY Qty: 90 3RF Rx Instructions: 1/2 in the morning and 1 at night metoprolol tartrate 50 mg tablet 50 mg PO DAILY Qty: 90 3RF atorvastatin 10 mg tablet 10 mg PO DAILY pregabalin 200 mg capsule 200 mg PO DAILY Discharge Orders: Discharge ED (Routine); Ordered 03/28/24 Ordered By: Diego Puentes Referrals: Rohith Urbano MD [Primary Care Provider] - 4-7 days Discharge Diet: Advance as tolerated Discharge Activity: Resume usual activity Patient Instructions: Altered Mental Status (ED) Print Language: Hungarian Coding Level of Care Code ED Senior Project Architect for Nena Barraza
--- NOTE | 2024-03-28 14:47 | ECG_ITS ---
[facility]: 2024-03[facility]28 Pat Name: Tamir Cintron Department: Room: Gender: Male Cut Pressman: : 1965 Requested By: Diego Puentes Order Number: [id number] Ritchie MD: Jun Marquez M.D. Measurements Intervals [place] Rate: 72 P: 69 MO: 168 QRS: 55 QRSD: 101 T: 58 QT: 416 QTc: 455 Interpretive Statements SINUS RHYTHM Compared to ECG 01/28/2024 12:48:47 Sinus bradycardia no longer present Prolonged QT interval no longer present Electronically Signed On 03-30-2024 17:54:24 VETERINARY TECHNICIAN ASSISTANT by Jun Marquez M.D. [email or web address]
[2024-03-28 14:50] LABS: Basophils # 0.1 10^3/uL (0.0-0.1); Basophils % 0.6 %; Eosinophils % 0.5 %; Hematocrit 45.3 % (37-53); Mean Corpuscular HGB Conc 32.7 g/dL (30-55); Mean Platelet Volume 9.3 fL (7.4-10.4); Monocytes # 0.7 10^3/uL (0.2-0.9); Monocytes % 8.3 %; Neutrophils # 5.93 10^3/uL (1.8-7.7); Neutrophils % 67.4 %; Nucleated Red Blood Cells % 0 %; Platelet Count 401 10^3/cmm (157-399); Red Blood Count 4.77 10^6/uL (3.85-5.65); Red Cell Distribution Width 12.7 % (12.1-15.1); White Blood Count 8.79 10^3/uL (3.29-11.43)
[2024-03-28 14:51] VITALS: BP 125/88; PULSE 71; O2SAT 97
[2024-03-28 14:53] LABS: Glucose Point of Care 96 mg/dL (70-110)
[2024-03-28 15:14] LABS: Alanine Aminotransferase 12 U/L (0-41); Albumin Level 4.4 g/dL (3.5-5.2); Alkaline Phosphatase 81 U/L (40-130); Anion Gap 16.8 (5-19); Aspartate Amino Transferase 14 U/L (0-40); Blood Urea Nitrogen 8 mg/dL (8-23); Calcium 9.9 mg/dL (8.5-10.5); Carbon Dioxide 29 mmol/L (22-29); Chloride 103 mmol/L (98-107); Creatinine Clr Calc Pharmacy 144.1459; Glomerular Filtration Rate 137.4 mL/min (90-130); Glucose 96 mg/dL (65-115); Osmolality Calculated 298 mOsm/kg (285-295); Potassium 3.8 mmol/L (3.5-5.1); Sodium 145 mmol/L (136-145); Thyroid Stimulating Hormone 0.41 uIU/mL (0.27-4.20); Total Bilirubin 0.4 mg/dL (0.15-1.2); Total Protein 8.4 g/dL (6.6-8.7)
[2024-03-28 15:16] LABS: Alcohol Level < 10 mg/dL (0-10); Ammonia 18 umol/L (16-60)
[2024-03-28 15:32] VITALS: BP 147/99; PULSE 71; O2SAT 92
[2024-03-28 16:00] VITALS: BP 114/86; PULSE 70; O2SAT 96
[2024-03-28 16:17] LABS: Add Urine Microscopic? NO; Bilirubin Urine Negative (Negative); Blood Urine Negative (Negative); Glucose Urine UA Negative (Normal); Ketones Urine Negative (Negative); Leukocyte Esterase Urine Negative (Negative); Nitrate Urine Negative (Negative); Protein Urine Negative (Negative); Specific Gravity, Urine 1.008 (1.005-1.030); Urine Appearance Clear (CLEAR); Urine Color Yellow (Yellow); Urobilinogen Urine 0.2 mg/dL (Negative); pH Urine 5.5 (5-7)
[2024-03-28 16:37] LABS: Charge for UA Resulting for Rev
[2024-03-28 17:21] VITALS: BP 111/87; PULSE 75; O2SAT 97
== END 2024-03-28 17:15 | disposition home or self-care (01) ==
PROVIDERS: Emergency Provider Emergency Medicine; PCP Family Medicine
DX: R41.82 Altered mental status, unspecified (principal)
CPT/HCPCS: 36416; 70450; 71045; 80053; 80307; 81003; 82140; 82962; 84443; 85025; 93005; 99285

== ENCOUNTER → 2024-06-12 13:49 | Outpatient (BNVA) | payer MEDICARE, SELFPAY | PROVIDERS: PCP Family Medicine; Visit Provider Specialist | DX: G24.3 Spasmodic torticollis (principal) | CPT/HCPCS: 64616; J0585; J9999 ==